=== PATIENT | female | born 1985 | race Caucasian/White ===

== ENCOUNTER 2023-03-15 05:51 | Emergency (ER) | payer OTHER, MEDICAID ==
[~2023-03-15] VITALS: Ht 165.1 cm; Wt 90.0 kg
[2023-03-15] MEDS ORDERED: IBUPROFEN 800MG TABLET PO ONE (08:45)
[2023-03-15] MEDS ORDERED: ONDANSETRON HCL 4MG/2ML INJ IV ONE (09:00)
[2023-03-15] MEDS ORDERED: FENTANYL CITRATE/PF 50MCG/ML 2ML VIAL IV ONE (09:00)
[2023-03-15] MEDS ORDERED: PROPOFOL 200MG/20ML VIAL IV ONE (09:00)
[2023-03-15] MEDS ORDERED: HYDR-4001 MT ×2 (09:21→10:55)
[2023-03-15] MEDS ORDERED: IBUP-2030 MT ×2 (09:21→10:55)
[2023-03-15] MEDS ORDERED: HYDROCODONE/ACETAMINOPHEN 5/325MG TABLET PO ONE (11:15)
[2023-03-15 11:47] VITALS: BP 110/72; PULSE 76; RESP 16; TEMP 98.6; O2SAT 98
== END 2023-03-15 11:51 | disposition home or self-care (01) ==
LOC: ER 05:51
DX: S52.511A Displaced fracture of right radial styloid process, initial encounter for closed fracture (principal); V89.2XXA Person injured in unspecified motor-vehicle accident, traffic, initial encounter; Y93.89 Activity, other specified; Y92.89 Other specified places as the place of occurrence of the external cause; Y99.8 Other external cause status
CPT/HCPCS: 25605; 73100; 99152; 99285; 96374; J3010; J2405; J2704; A4565